=== PATIENT | female | born 1950 | race Caucasian/White ===

== ENCOUNTER 2018-01-04 10:05 | Inpatient (IN) | payer MEDICARE, MEDICAID ==
[2018-01-04] MEDS ORDERED: Albuterol/Ipratropium 3.0-0.5 MG/3 ML Neb Soln NEB ONE (11:29)
[2018-01-04] MEDS ORDERED: methylPREDNISolone Sodium Succinate 125 MG/2 ML SDV IVPUSH ONE (11:29)
--- NOTE | 2018-01-04 11:33 | EDM.PDOC ---
ED HPI GENERAL MEDICAL PROBLEM - General Chief Complaint: Respiratory Problem Stated Complaint: Shortness of breath Time Seen by Provider: 01/04/18 11:28 Source of Information: Reports: Patient, Prison Records History Limitations: Reports: No Limitations - History of Present Illness INITIAL COMMENTS - FREE TEXT/NARRATIVE: Patient is a 67-year-old female who presents via EMS from the [facility] secondary to shortness of breath. Patient was seen by [facility] provider this morning and determined to require transfer to ER for evaluation. No report from this provider was received. Based on nursing notes and patient description, patient states that yesterday afternoon she developed shortness of breath. This morning. symptoms worsened and temperature said to be elevated. She was evaluated by provider and lab work was ordered. This morning WBC elevated at 12, hemoglobin 8.3, hematocrit 26.4, glucose 116 be when 36, creatinine 3.21, potassium 5.5. No BNP was performed. At this time patient denies chest pain, nausea, vomiting, diarrhea, headache, or abdominal pain. Onset: Today Onset Date: 01/03/18 Onset Time: 15:00 Duration: Day(s): Location: Reports: Chest Improves with: Reports: None Worsens with: Reports: None Associated Symptoms: Reports: Shortness of Breath Treatments COMPUTATOR: Reports: Breathing Treatments - Related Data Allergies Allergy/AdvReac Type Severity Reaction Status Date / Time doxycycline Allergy Rash Verified 01/04/18 11:24 nicotine Allergy Rash Verified 01/04/18 11:24 ED ROS GENERAL - Review of Systems Review Of Systems: ROS reveals no pertinent complaints other than HPI. Constitutional: Reports: No Symptoms HEENT: Reports: No Symptoms Respiratory: Reports: Shortness of Breath, Wheezing Cardiovascular: Reports: No Symptoms Endocrine: Reports: No Symptoms GI/Abdominal: Reports: No Symptoms : Reports: No Symptoms Musculoskeletal: Reports: No Symptoms Skin: Reports: No Symptoms Neurological: Reports: No Symptoms Psychiatric: Reports: No Symptoms Hematologic/Lymphatic: Reports: Anemia Immunologic: Reports: No Symptoms ED EXAM, GENERAL - Physical Exam Exam: See Below Exam Limited By: No Limitations General Appearance: Alert, WD/WN, No Apparent Distress Eye Exam: Bilateral Eye: Normal Inspection Nose: Normal Inspection, Normal Mucosa, No Blood Throat/Mouth: Normal Inspection, Normal Oropharynx, No Airway Compromise Head: Atraumatic, Normocephalic Neck: Normal Inspection. No: Lymphadenopathy (L), Lymphadenopathy (R) Respiratory/Chest: Chest Non-Tender, Wheezing Cardiovascular: Regular Rate, Rhythm, No Murmur GI/Abdominal: Normal Bowel Sounds, Soft, Non-Tender Back Exam: Normal Inspection. No: CVA Tenderness (L), CVA Tenderness (R) Extremities: Pedal Edema (3+ bilateral) Neurological: Alert, Oriented, Normal Cognition Psychiatric: Normal Affect, Normal Mood Skin Exam: Warm, Dry, Intact, Normal Color, No Rash Lymphatic: No Adenopathy Course - Vital Signs Last Recorded V/S: Last Vital Signs Temp 98.5 F 01/04/18 10:20 Pulse 56 L 01/04/18 10:20 Resp 32 H 01/04/18 10:20 BP 81/38 L 01/04/18 10:20 Pulse Ox 90 L 01/04/18 10:20 - Orders/Labs/Meds Orders: Active Orders 24 hr Category Date Time Status Chest 1V Frontal [CR] Stat Exams 01/04/18 10:50 Ordered B-TYPE NATRIURETIC PEPTIDE,BNP [CHEM] Stat Lab 01/04/18 11:05 Received UA W/MICROSCOPIC [URIN] Stat Lab 01/04/18 10:30 Results Labs: Laboratory Tests 01/04/18 Range/Units 10:30 Urine Color Yellow (YELLOW) Urine Appearance Cloudy H (CLEAR) Urine pH 5.5 (5.0-9.0) Ur Specific [place] >= 1.030 (1.005-1.030) Urine Protein 100 H (NEGATIVE) mg/dL Urine Glucose (UA) Negative (NEGATIVE) mg/dL Urine Ketones Negative (NEGATIVE) mg/dL Urine Occult Blood Small H (NEGATIVE) Urine Nitrite Positive H (NEGATIVE) Urine Bilirubin Negative (NEGATIVE) Urine Urobilinogen 0.2 (0.2-1.0) E.U./dL Ur Leukocyte Esterase Moderate H (NEGATIVE) - Radiology Interpretation Free Text/Narrative:: Chest x-ray shows moderate congestive heart failure - Re-Assessments/Exams Free Text/Narrative Re-Assessment/Exam: 01/04/18 11:52 Patient afebrile, nontoxic appearing, vital signs stable, oxygenation and respiratory status improving after nebulizer and Lasix. Discussed case with Dr. Cho regarding my concern for lack of information coming from outlying medical providers as to the status and condition of patients being sent to the ER. Dr. Cho said he will address this issue. He will also admit this patient inpatient and follow. 01/04/18 12:03 Departure - Departure Time of Disposition: 12:02 Disposition: Admitted As Inpatient 64 Condition: Fair Clinical Impression: Congestive heart failure Qualifiers: Heart failure type: unspecified Heart failure chronicity: acute on chronic Qualified Code(s): I50.9 - Heart failure, unspecified Urinary tract infection Qualifiers: Urinary tract infection type: acute cystitis Hematuria presence: with hematuria Qualified Code(s): N30.01 - Acute cystitis with hematuria - Discharge Information Referrals: Gertrudis Yoder MD [Primary Care Provider] - - My Orders Last 24 Hours: My Active Orders 01/04/18 10:30 UA W/MICROSCOPIC [URIN] Stat 01/04/18 10:50 Chest 1V Frontal [CR] Stat 01/04/18 11:05 B-TYPE NATRIURETIC PEPTIDE,BNP [CHEM] Stat - Assessment/Plan Last 24 Hours: My Active Orders 01/04/18 10:30 UA W/MICROSCOPIC [URIN] Stat 01/04/18 10:50 Chest 1V Frontal [CR] Stat 01/04/18 11:05 B-TYPE NATRIURETIC PEPTIDE,BNP [CHEM] Stat Assessment:: CHF, UTI Plan: Admit inpatient for [facility]
[2018-01-04] MEDS ORDERED: cefTRIAXone 1 GM Vial IVPUSH ONE (11:40)
[2018-01-04] MEDS ORDERED: Furosemide 40 MG/4 ML VIAL IVPUSH ONE ×2 (11:45→16:57)
[2018-01-04 13:50] LABS: O2 DELIVERY DEVICE SIMPLE MASK; PCO2 ARTERIAL 21 mmHG (35-45); PO2 ARTERIAL 54 mmHG (80-105)
[2018-01-04 13:51] LABS: BASE EXCESS ARTERIAL -12 mmol/L (-2-3); BICARBONATE,ARTERIAL 12.9 mmol/L (22-26); O2 SATURATION ARTERIAL 89 % (95-98)
[2018-01-04] MEDS ORDERED: Bisacodyl 5 MG Tab PO PRN (16:27)
[2018-01-04] MEDS ORDERED: Albuterol/Ipratropium 3.0-0.5 MG/3 ML Neb Soln INH PRN (16:27)
[2018-01-04] MEDS ORDERED: Calcium Carbonate 500 MG Tab.Chew PO PRN (16:27)
[2018-01-04] MEDS ORDERED: Nitroglycerin 0.4 MG Tab.SL SL PRN (16:27)
[2018-01-04] MEDS ORDERED: hydrALAZINE 50 MG Tab PO SCH (20:00)
--- NOTE | 2018-01-04 20:16 | HP ---
PATIENT PROFILE: The patient is a 67-year-old patient from the [facility] in [place], [place]. HISTORY OF PRESENT ILLNESS: This 67-year-old patient was seen today at the [facility], due to acute illness. It was noted that she was running a low-grade temperature of 99 to 100 degrees. She was having increasing shortness of breath. Respiratory rate was greater than 40. Oxygen saturation initially was 60, it did come up to 80 to 86 with oxygen. Otherwise, her blood pressure was 128/65, pulse was 65, and respiratory rate was at 40. The patient denied any cough, but has increasing shortness of breath. She denies having any abdominal pain or urinary frequency or burning, but she states that she has a history of bladder infections. 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 The Patient's Past Health Maintenance History: Hepatitis screening is due. Zoster vaccine, she received 1/ in 1998. DEXA heel scan was performed in 2013. Advanced directive was performed in 2013. Colonoscopy in 2013. Mammogram in 2014. Tetanus vaccine in 2015. Influenza vaccine on 01/03/2018. Pneumococcal 65+ high risk is due in 2019. Lipid screening will be performed. Diabetes screening. PAST SURGICAL HISTORY: Includes carpal tunnel release on the right side, total hip revision on the left side, hysterectomy at age 50, and joint replacement was at age 38. She has had a hysterectomy at age 50, diagnosis was uterine prolapse. MEDICATIONS: Include, 1. Metoprolol 50 mg 2 times a day. 2. Tylenol Arthritis 650 mg twice a day. 3. Ativan 0.5 mg q.4 hours on a p.r.n. basis. 4. Remeron 15 mg at bedtime. 5. Albuterol (Proventil) inhalations 2.5 mg/3 mL, one nebulizer every 2 hours as needed. 6. Lipitor 40 mg once at bedtime. 7. MiraLAX 17 g once daily on a p.r.n. basis. 8. Docusate sodium 2 tablets 2 times a day. 9. Isosorbide mononitrate 30 mg SR 1 tablet daily. 10.Citalopram 20 mg daily. 11.Norvasc 5 mg daily. 12.Plavix 75 mg daily. 13.Aspirin 81 mg daily. 14.Nitroglycerin 0.4 mg sublingual on a p.r.n. basis for chest pain. ALLERGIES: Nicotine and doxycycline. REVIEW OF SYSTEMS: HEAD AND NECK: No complaints. CARDIAC: Denies any chest pain or palpitations. RESPIRATORY: Complaining of shortness of breath and some coughing. DuoNeb was given prior to the examination. There was no apparent improvement. She has an elevated respiratory rate. No pain. GI: No complaints. : No complaints. MUSCULOSKELETAL: No complaints except for left hemiparesis due to old CVA. NEUROLOGICAL: See present history. She is answering questions appropriately. She has a history of dementia and a picking disorder. PHYSICAL EXAMINATION: GENERAL: Reveals an elderly patient in a moderate amount of distress. VITAL SIGNS: Her vital signs are as follows: Her pulse rate is 50 and a temperature of 97.9, blood pressure is 120/57, and respiratory rate was 22. HEAD: Normocephalic. EYES: Arcus senilis. EARS, NOSE, AND THROAT: Normal. NECK: Supple. Full range of motion. No midline swellings. Thyroid gland is not enlarged. LUNGS: Rales bilaterally, especially in the left side. Trachea midline. Thyroid gland is not enlarged. No neck masses. HEART: Regular rhythm. Tachycardia noted. Grade 1/6 systolic murmur in the left side. ABDOMEN: Soft. No distention. No organomegaly. No hepatosplenomegaly. No masses. No tenderness. Bowel tones are normal. Femoral pulses are good. EXTREMITIES: Upper extremities are normal. Lower extremities revealed 1+ pitting edema at the ankles. RECTAL: Deferred. PELVIC: Deferred. NEUROLOGIC: Essentially intact. The patient is answering questions appropriately. No neurological deficit is identified. Reflexes are normal. LABORATORY DATA: Her blood gases reveal a pO2 of 54%, pH of 7.40, pCO2 was 21. Troponin level was 0.06. Beta natriuretic peptide was 1540. Urinalysis revealed a small amount of occult blood, positive nitrites, moderate leukocyte esterase, urine rbc's 0-5, urine wbc semi packed. The patient's hemoglobin is 8.3 on 01/04/2018, white count is 12.8. Previous hemoglobin on 12/30 was 8.7, white count was 10,500. Glucose is 116, potassium is 5.5, creatinine 3.21 and BUN is 36. Calcium was 8.1. Blood sugar was 116. FINAL DIAGNOSES: This 67-year-old patient with a history of congestive heart failure with an elevated troponin level. The patient also has history of renal failure, anemia, hemoglobin of 8.3. Other problems are urinary tract infection. Medical problems are status post depression; essential hypertension; hyperlipidemia; osteoarthritis of the hip, status post left hip total revision; coronary artery disease with [id number] elevation myocardial infarction; previous cerebrovascular accident; previous status post aortic valve replacement; history of anxiety; history of chronic renal failure; history of neurocognitive disorder; status post carpal tunnel release on the right side; status post left hip revision; status post tonsillectomy; status post hysterectomy. PLAN: Would be to try to diurese her and see if we can get some fluid off her lungs. Monitor her troponin levels for ongoing non-ST segment elevated SC. The patient may have to get a blood transfusion for her anemia. If symptoms do not improve, the patient will most likely be transferred to [place]. /[id number]/MODL
[2018-01-04] MEDS ORDERED: atorvaSTATin 40 MG Tab PO SCH (21:00)
[2018-01-04] MEDS ORDERED: Acetaminophen 325 MG Tab PO SCH (21:00)
[2018-01-04] MEDS ORDERED: Metoprolol Succinate 50 MG Tab.ER PO SCH (21:00)
[2018-01-04] MEDS ORDERED: Cranberry Ext/C/L. Sporogenes Tab PO SCH (21:00)
[2018-01-04] MEDS ORDERED: Mirtazapine 15 MG Tab PO SCH (21:00)
[2018-01-05] MEDS ORDERED: Clopidogrel 75 MG Tab PO SCH (09:00)
[2018-01-05] MEDS ORDERED: Potassium Chloride 20 MEQ Tab.ER PO SCH (09:00)
[2018-01-05] MEDS ORDERED: Isosorbide Mononitrate 30 MG Tab.ER PO SCH (09:00)
[2018-01-05] MEDS ORDERED: Aspirin 81 MG Tab.EC PO SCH (09:00)
[2018-01-05] MEDS ORDERED: Famotidine 20 MG Tab PO SCH (09:00)
[2018-01-05] MEDS ORDERED: amLODIPine 5 MG Tab PO SCH (09:00)
[2018-01-05] MEDS ORDERED: Citalopram 20 MG Tab PO SCH (09:00)
[2018-01-05] MEDS ORDERED: Loratadine 10 MG Tab PO SCH (09:00)
--- NOTE | 2018-01-06 08:53 | DISCH ---
01/04/2018PATIENT NAME: ROXANNE JACKSON This 67-year-old patient from the [facility] in [place], [place], was admitted to the hospital on 01/04/2018 because of increasing shortness of breath. Her respiratory rate was greater than 40. Her pulse was 65. Blood pressure was 120/65 on admission. She was evaluated in the emergency room and felt to have acute congestive heart failure. She had history of coronary artery disease, chronic kidney disease stage 4 to 5, COPD, and old history of CVA. After being admitted with auscultation, chest x-ray showed pulmonary edema, especially of the left lung. EKG showed ischemic changes in the lateral leads. The patient was admitted to the hospital and given IV Lasix. She was also treated for urinary tract infection with IV Rocephin. Over the course of the hospital stay, the patient made some improvement with increased diuresis. However, she remained moderately short of breath. Because of the complicated nature of her medical illness which would include congestive heart failure, possible pulmonary edema, possible [id number] [place], elevated troponin levels, chronic kidney disease, and anemia. She was transferred to [facility] in the evening of 01/04/2018. She was discharged in a stable condition. Followup will be at the [facility] in [place] after discharge from [facility]. /[id number]/MODL
== END 2018-01-04 18:30 | DRG 281 ==
LOC: KA.ED 10:05 → KA.MS 11:54
PROVIDERS: ADMIT Physician Assistant Surgical; ATTEND Family Medicine
DX: I50.9 Heart failure, unspecified (principal); N30.01 Acute cystitis with hematuria; I21.4 Non-ST elevation (NSTEMI) myocardial infarction; N18.5 Chronic kidney disease, stage 5; J81.1 Chronic pulmonary edema; N39.0 Urinary tract infection, site not specified; I13.2 Hypertensive heart and chronic kidney disease with heart failure and with stage 5 chronic kidney disease, or end stage renal disease; D64.9 Anemia, unspecified; I25.10 Atherosclerotic heart disease of native coronary artery without angina pectoris; J44.9 Chronic obstructive pulmonary disease, unspecified; K21.9 Gastro-esophageal reflux disease without esophagitis; F32.9 Major depressive disorder, single episode, unspecified; E78.5 Hyperlipidemia, unspecified; M16.0 Bilateral primary osteoarthritis of hip; F41.9 Anxiety disorder, unspecified; F01.50 Vascular dementia, unspecified severity, without behavioral disturbance, psychotic disturbance, mood disturbance, and anxiety; I25.2 Old myocardial infarction; Z96.642 Presence of left artificial hip joint; Z86.73 Personal history of transient ischemic attack (TIA), and cerebral infarction without residual deficits; Z79.01 Long term (current) use of anticoagulants; Z95.2 Presence of prosthetic heart valve; Z88.8 Allergy status to other drugs, medicaments and biological substances
CPT/HCPCS: 36415; 36600; 51702; 71045; 81001; 82803; 83880; 84484; 93005; 96374; 96375; 99284; 99285; J0696; J1940; J2930; J7620-GY